=== PATIENT | male | born 1930 | race Caucasian/White ===

== ENCOUNTER 2017-05-23 21:04 | Inpatient (IN) ==
[2017-05-23 21:52] LABS: Basophils # 0.1 K/mcL (0.0-0.2); Basophils % 1.2 %; Hematocrit 36.4 % (37.5-50.1); Hemoglobin 11.6 g/dL (12.9-16.9); Immature Granulocytes % 0.3 % (0-4); Immature Platelets 6.4 % (1.1-6.1); Lymphocytes % 38.5 %; Mean Corpuscular HGB Conc 31.9 g/dL (31.6-35.5); Mean Corpuscular Hemoglobin 30.8 pg (28.0-33.3); Mean Corpuscular Volume 96.6 fL (83.0-100.0); Mean Platelet Volume 11.1 fL (9.4-12.4); Monocytes # 0.6 K/mcL (0.0-1.3); Monocytes % 7.3 %; Neutrophils # 4.1 K/mcL (1.6-8.9); Platelet Count 242 K/mcL (140-400); Red Blood Count 3.77 M/mcL (4.19-5.50); Red Cell Distribution Width 12.8 % (11.5-14.5); Segmented Neutrophils % 52.7 %
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
[2017-05-23 22:12] LABS: Acetaminophen < 1.0 mcg/mL (10-30); Ethanol < 10 mg/dL (0-10)
[2017-05-23 22:24] LABS: Alanine Aminotransferase 51 Units/L (7-52); Albumin 3.8 g/dL (3.5-5.7); Albumin/Globulin Ratio 1.4 (1.1-2.2); Alkaline Phosphatase 88 Units/L (34-104); Aspartate Amino Transferase 51 Units/L (13-39); BUN/Creatinine Ratio 19 (6-26); Bilirubin,Direct 0.1 mg/dL (0.0-0.2); Bilirubin,Indirect 0.5 mg/dL (0.0-1.2); Bilirubin,Total 0.6 mg/dL (0.3-1.0); Blood Urea Nitrogen 29 mg/dL (8-23); Carbon Dioxide 28 mEq/L (23-29); Chloride 104 mEq/L (98-107); Globulin 2.7 g/dL (2.4-3.5); Glucose 97 mg/dL (70-105); Osmolality,Calculated 294 (280-300); Potassium 4.4 mEq/L (3.5-5.1); Sodium 139 mEq/L (136-145); Total Protein 6.5 g/dL (6.4-8.9); eGFR For African Americans 51 (> 60); eGFR For Non-African Americans 42 (> 60)
[2017-05-23 22:29] LABS: Bilirubin,Urine Small (Negative); Blood,Urine Negative (Negative); Clarity,Urine Cloudy (Clear); Color,Urine Dark Yellow (Yellow); Glucose,Urine (UA) Normal (Normal); Ketones,Urine Trace mg/dL (Negative); Leukocyte Esterase,Urine Negative (Negative); Nitrite,Urine Negative (Negative); Protein,Urine 30 mg/dL (Neg-Trace); Specific Gravity,Urine > 1.030 (1.010-1.025)
[2017-05-23 22:31] LABS: Bacteria,Urine None Seen per hpf (None-Few); Hyaline Casts,Urine Few per lpf (None-Few); RBC,Urine 0-3 per hpf (0-3); Squamous Epithelial Cell,Urine Many per lpf (None-Few)
[2017-05-23 22:32] LABS: Amphetamine Screen,Urine Negative ng/mL (Cutoff=1000); Barbiturate Screen,Urine Negative ng/mL (Cutoff=200); Benzodiazepines Screen,Urine Positive ng/mL (Cutoff=200); Cannabinoid Screen,Urine Negative ng/mL (Cutoff = 50); Cocaine Screen,Urine Negative ng/mL (Cutoff= 300); Opiate Screen,Urine Negative ng/mL (Cutoff=300); Phencyclidine Screen,Urine Negative ng/mL (Cutoff=25)
[2017-05-23] MEDS ORDERED: Vancomycin 1,250 MG in D5% in Water 250 ML IVPB ONE (23:11)
[2017-05-23] MEDS ORDERED: Cefepime HCl 1,000 MG in D5% in Water (Mini-Bag+) 100 ML IVPB STA (23:11)
--- NOTE | 2017-05-23 23:13 | Emergency Department Note ---
START Narrative - START START: I, Piter Garcia, examined this patient and my medical decision-making was reviewed with the FIRE ENGINE OPERATOR/PA/Advanced Practice Nurse/Resident Physician. I agree with the documented findings, disposition and treatment plan as described except to the extent set forth below. 87-year-old male to the emergency department by family for concerns of violent behavior. Patient states initially stayed in a assisted-living facility about a year and a half ago. He was transferred from [place] to the local area [facility] where he is staying in a long-term care facility. Patient has become increasingly violent which has been a gradual decline in his behavior. Family states he was evaluated in [facility] 3 days ago and was diagnosed with a possible pneumonia and started on Augmentin. His behavior has not improved and he is evaluation. Patient has acute kidney injury on laboratory evaluation we do not have his baseline. Family states he does not have a history of kidney disease. Patient also has a pneumonia and will be treated as healthcare associated pneumonia secondary to his long-term care housing situation. Patient will be admitted to the hospitalist for further care and evaluation.
[2017-05-24] MEDS ORDERED: Haloperidol Lactate 5 MG/ML VIAL IM ONE ×2 (01:43→02:11)
[2017-05-24] MEDS ORDERED: Haloperidol Lactate 5 MG/ML VIAL ONE (01:43)
[2017-05-24] MEDS ORDERED: traMADol 50 MG TABLET PO PRN (03:13)
[2017-05-24] MEDS ORDERED: Naloxone 0.4 MG/ML INJ IVP PRN (03:13)
[2017-05-24] MEDS ORDERED: Acetaminophen 325 MG TABLET PO PRN (03:13)
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
[2017-05-24] MEDS ORDERED: Levofloxacin 500 MG/100 ML 500 MG/100 ML BAG IVPB SCH (04:00)
[2017-05-24] MEDS: *HR* Heparin 5,000 UNIT/ML VIAL SQ SCH ×2 (07:59→17:53)
[2017-05-24] MEDS ORDERED: Haloperidol Lactate 5 MG/ML VIAL IM PRN (08:00)
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
[2017-05-24] MEDS ORDERED: ALPRAZolam 0.5 MG TABLET PO ONE (15:41)
[2017-05-24] MEDS ORDERED: ALPRAZolam 0.5 MG TABLET PO PRN (17:14)
[2017-05-24] MEDS: Amoxicillin/Clavulanate 500 MG TABLET PO SCH (17:53)
[2017-05-24] MEDS: Budesonide/Formoterol 80/4.5 MDI IH SCH (19:58)
[2017-05-24] MEDS ORDERED: Mirtazapine 15 MG TABLET PO SCH (21:00)
[2017-05-24] MEDS: traZODone 50 MG TABLET PO SCH ×2 (21:32→22:01)
[2017-05-24] MEDS: Mirtazapine 15 MG TABLET PO SCH ×2 (21:32→22:01)
[2017-05-24] MEDS: Divalproex (24 HR) 250 MG TABLET PO SCH ×2 (21:32→22:01)
[2017-05-24] MEDS: Gabapentin 100 MG CAPSULE PO SCH ×2 (21:32→22:01)
[2017-05-24] MEDS: Methocarbamol 500 MG TABLET PO SCH (23:43)
[2017-05-25] MEDS: *HR* Heparin 5,000 UNIT/ML VIAL SQ SCH ×2 (06:22→17:31)
[2017-05-25 06:58] LABS: Basophils # 0.1 K/mcL (0.0-0.2); Basophils % 0.8 %; Eosinophils # 0.6 K/mcL (0.0-0.6); Eosinophils % 10.1 %; Hemoglobin 11.5 g/dL (12.9-16.9); Immature Granulocytes % 0.2 % (0-4); Lymphocytes # 2.2 K/mcL (0.6-4.6); Lymphocytes % 35.1 %; Mean Corpuscular HGB Conc 33.8 g/dL (31.6-35.5); Mean Corpuscular Volume 91.6 fL (83.0-100.0); Mean Platelet Volume 11.5 fL (9.4-12.4); Monocytes # 0.5 K/mcL (0.0-1.3); Monocytes % 7.5 %; Neutrophils # 2.8 K/mcL (1.6-8.9); Platelet Count 200 K/mcL (140-400); Red Blood Count 3.71 M/mcL (4.19-5.50); Red Cell Distribution Width 12.7 % (11.5-14.5); Segmented Neutrophils % 46.3 %
[2017-05-25 07:23] LABS: Alanine Aminotransferase 78 Units/L (7-52); Albumin 3.5 g/dL (3.5-5.7); Albumin/Globulin Ratio 1.5 (1.1-2.2); Alkaline Phosphatase 77 Units/L (34-104); Aspartate Amino Transferase 60 Units/L (13-39); BUN/Creatinine Ratio 18 (6-26); Bilirubin,Total 0.7 mg/dL (0.3-1.0); Blood Urea Nitrogen 17 mg/dL (8-23); Calcium 8.7 mg/dL (8.6-10.3); Carbon Dioxide 25 mEq/L (23-29); Chloride 106 mEq/L (98-107); Globulin 2.4 g/dL (2.4-3.5); Glucose 99 mg/dL (70-105); Osmolality,Calculated 286 (280-300); Potassium 4.1 mEq/L (3.5-5.1); Sodium 137 mEq/L (136-145); Total Protein 5.9 g/dL (6.4-8.9); eGFR For African Americans > 60 (> 60); eGFR For Non-African Americans > 60 (> 60)
[2017-05-25] MEDS ORDERED: Aspirin Enteric Coated 81 MG Tablet PO SCH (09:00)
[2017-05-25] MEDS: Aspirin Enteric Coated 81 MG Tablet PO SCH (09:15)
[2017-05-25] MEDS: traZODone 50 MG TABLET PO SCH ×2 (09:15→20:01)
[2017-05-25] MEDS: Methocarbamol 500 MG TABLET PO SCH ×3 (09:15→23:19)
[2017-05-25] MEDS: Famotidine 20 MG TABLET PO SCH (09:15)
[2017-05-25] MEDS: Gabapentin 100 MG CAPSULE PO SCH ×2 (09:15→20:01)
[2017-05-25] MEDS: Amoxicillin/Clavulanate 500 MG TABLET PO SCH ×2 (09:15→17:31)
[2017-05-25] MEDS: Budesonide/Formoterol 80/4.5 MDI IH SCH ×2 (09:50→19:40)
--- NOTE | 2017-05-25 10:24 | Internal Med Progress Note ---
Date of Encounter: 05/25/17 Time of Encounter: 07:55 - Assessment and plan (1) Violent behavior Current Visit: Yes Status: Acute Assessment and plan: Seen by psychiatry. Restarted on multiple behavior medications. The patient is thought to be . We will continue to monitor with a sitter. Has medication. Restarted at the regular time of which they are dosed at home. We will see if that helps. Appreciate psychiatry help. We will try to take him off restraints later today and see if he does okay. He seems to do better when family is around. (2) Pneumonia Current Visit: Yes Status: Suspected Assessment and plan: Recently diagnosed as an outpatient. Has been on Augmentin. Talked to family yesterday it seems that he has been on antibiotics for about 3-4 days prior to this admission. We will do about 3 more days of Augmentin. He has no signs of pneumonia except for infiltrates on chest x-ray which is expected. He has no white count, cough, fever. Qualifiers: Pneumonia type: due to unspecified organism Laterality: right Lung location: lower lobe of lung Qualified Code(s): J18.1 - Lobar pneumonia, unspecified organism (3) DVT prophylaxis Current Visit: Yes Status: Acute Assessment and plan: Heparin subcutaneous - Subjective Interval history: Patient seen and examined. I took him off the restraints yesterday evening however again this morning his back N restraints as he has been combative again overnight. Has been hemodynamically stable. He is much more calmer this morning. - Constitutional Vitals: Temp Pulse Resp BP Pulse Ox 97.7 F 58 16 169/84 93 05/25/17 07:26 05/25/17 07:26 05/25/17 07:26 05/25/17 07:26 05/25/17 09:22 General appearance: Present: A&O X 0. Absent: cooperative Exam: GEN: NAD, alert and oriented 0 CVS: RRR. S1, S2, No m/r/g RESP: CTAB ABD: Soft, NT, ND, +BS EXT: No edema. 2+ DP. No rashes NEURO: Nonfocal Internal Medicine: Result - Labs CBC & Chem 7: 05/25/17 06:39 05/25/17 06:39 Labs: Short CBC 05/25/17 Range/Units 06:39 WBC 6.1 (4.3-11.1) K/mcL Hgb 11.5 L (12.9-16.9) g/dL Hct 34.0 L (37.5-50.1) % Plt Count 200 (140-400) K/mcL Neutrophils # 2.8 (1.6-8.9) K/mcL BMP 05/25/17 06:39 Sodium 137 Potassium 4.1 Chloride 106 Carbon Dioxide 25 BUN 17 Creatinine 0.92 Glucose 99 Calcium 8.7 Liver Function 05/25/17 Range/Units 06:39 Total Bilirubin 0.7 (0.3-1.0) mg/dL AST 60 H (13-39) Units/L ALT 78 H (7-52) Units/L Alkaline Phosphatase 77 (34-104) Units/L Albumin 3.5 (3.5-5.7) g/dL Consult Discharge Plan - Plan Referrals: [facility] [Primary Care Provider] - Carlotta Sorensen [Family Provider] -
[2017-05-25] MEDS: ALPRAZolam 0.5 MG TABLET PO SCH (16:09)
[2017-05-25] MEDS: Mirtazapine 15 MG TABLET PO SCH (17:31)
[2017-05-25] MEDS: Divalproex (24 HR) 250 MG TABLET PO SCH (20:00)
[2017-05-26] MEDS: *HR* Heparin 5,000 UNIT/ML VIAL SQ SCH ×2 (06:39→18:00)
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
--- NOTE | 2017-05-26 08:32 | Physician Discharge Referral ---
ExtendedCare Referral Info Institutional Level of Care: Skilled - Diagnosis (1) Violent behavior Priority: Primary Status: Acute (2) Pneumonia Priority: Secondary Status: Suspected - Transfer Medications Home Medications: ALPRAZolam [Xanax 0.5 MG Tablet] 0.5 mg PO DAILY PRN 05/24/17 [History] Aspirin Enteric Coated [Aspirin EC] 81 mg PO DAILY 05/24/17 [History] Budesonide/Formoterol 80/4.5 [Symbicort 80/4.5] 2 puff IH BID 05/24/17 [History ] Cimetidine 200 mg PO BID 05/24/17 [History] Divalproex (24 HR) [Depakote ER (24 HR)] 250 mg PO HS 05/24/17 [History] Gabapentin [Neurontin] 100 mg PO BID 05/24/17 [History] Hydrocortisone 1% CREAM [Cortaid] 1 appl TP BID 05/24/17 [History] Methocarbamol [Robaxin] 500 mg PO Q8HR 05/24/17 [History] Mirtazapine [Remeron] 15 mg PO HS 05/24/17 [History] Montelukast [Singulair] 10 mg PO HS 05/24/17 [History] Multivit-Min/FA/Lycopen/Lutein [Men 50 Plus Multivitamin Tab] 1 tab PO DAILY 07/06 [History] Sertraline [Zoloft] 100 mg PO DAILY 05/24/17 [History] Tramadol HCl [Ultram] 50 mg PO BID 05/24/17 [History] traZODone [TraZODone] 50 mg PO BID 05/24/17 [History] Allergies/Adverse Reactions: 3 Allergy/AdvReac Type Severity Reaction Status Date / Time lorazepam [From Ativan] AdvReac Agitated Verified 05/24/17 16:55 - Respiratory Orders Smoking Cessation: Smoking cessation has been advised. For more information, call the [place] Tobacco Quit Line at 5-943-TINR-NOW. - Diet Orders Regular CERTIFICATION: I certify that the transfer of the above named patient to an Extended Care Facility is necessary for the continuing treatment of the diagnosis listed. The above information is true and accurate reflection of patient's current condition. Confidential - Redisclosure prohibited without a patient's written consent.
[2017-05-26] MEDS: Methocarbamol 500 MG TABLET PO SCH ×2 (09:36→17:07)
[2017-05-26] MEDS: traZODone 50 MG TABLET PO SCH ×2 (09:36→20:43)
[2017-05-26] MEDS: Gabapentin 100 MG CAPSULE PO SCH ×2 (09:36→20:42)
[2017-05-26] MEDS: Mirtazapine 15 MG TABLET PO SCH (09:36)
[2017-05-26] MEDS: Famotidine 20 MG TABLET PO SCH (09:36)
[2017-05-26] MEDS: Amoxicillin/Clavulanate 500 MG TABLET PO SCH ×2 (09:36→17:07)
[2017-05-26] MEDS: Aspirin Enteric Coated 81 MG Tablet PO SCH (09:37)
[2017-05-26] MEDS: ALPRAZolam 0.5 MG TABLET PO SCH (09:37)
[2017-05-26] MEDS: Budesonide/Formoterol 80/4.5 MDI IH SCH ×2 (10:43→19:29)
--- NOTE | 2017-05-26 13:53 | Internal Med Progress Note ---
Date of Encounter: 05/27/17 Time of Encounter: 08:00 - Assessment and plan (1) Violent behavior Current Visit: Yes Status: Acute Assessment and plan: Seen by psychiatry. Restarted on multiple behavior medications. Much more calmer. The patient is thought to be . Has medication. Restarted at the regular time of which they are dosed at home. We will see if that helps. Appreciate psychiatry help. Off restraints since yesterday. He seems to do better when family is around. We are working on placement. (2) Pneumonia Current Visit: Yes Status: Suspected Assessment and plan: Recently diagnosed as an outpatient. Has been on Augmentin. Talked to family yesterday it seems that he has been on antibiotics for about 3-4 days prior to this admission. We will do about 2 more days of Augmentin. He has no signs of pneumonia except for infiltrates on chest x-ray which is expected. He has no white count, cough, fever. Qualifiers: Pneumonia type: due to unspecified organism Laterality: right Lung location: lower lobe of lung Qualified Code(s): J18.1 - Lobar pneumonia, unspecified organism - Subjective Interval history: Patient seen and examined. we have not had the need to put him back on restraints. He has been calm.. Has been hemodynamically stable. Were awaiting placement. - Constitutional Vitals: Temp Pulse Resp BP Pulse Ox 97.6 F 69 17 146/73 96 05/26/17 06:40 05/26/17 06:40 05/26/17 06:40 05/26/17 06:40 05/26/17 09:44 General appearance: Present: A&O X 0. Absent: cooperative Exam: GEN: NAD, alert and oriented 0 CVS: RRR. S1, S2, No m/r/g RESP: CTAB ABD: Soft, NT, ND, +BS EXT: No edema. 2+ DP. No rashes NEURO: Nonfocal Internal Medicine: Result - Labs CBC & Chem 7: 05/25/17 06:39 05/25/17 06:39 Consult Discharge Plan - Plan [facility]errals: [facility] [Primary Care Provider] - Carlotta Sorensen [Family Provider] -
[2017-05-26] MEDS: Divalproex (24 HR) 250 MG TABLET PO SCH (20:44)
[2017-05-27] MEDS: Methocarbamol 500 MG TABLET PO SCH ×3 (00:34→17:01)
[2017-05-27] MEDS: *HR* Heparin 5,000 UNIT/ML VIAL SQ SCH ×2 (07:22→17:01)
[2017-05-27] MEDS: Amoxicillin/Clavulanate 500 MG TABLET PO SCH (09:10)
[2017-05-27] MEDS: ALPRAZolam 0.5 MG TABLET PO SCH (09:10)
[2017-05-27] MEDS: traZODone 50 MG TABLET PO SCH ×2 (09:10→22:40)
[2017-05-27] MEDS: Gabapentin 100 MG CAPSULE PO SCH ×2 (09:10→22:40)
[2017-05-27] MEDS: Mirtazapine 15 MG TABLET PO SCH (09:11)
[2017-05-27] MEDS: Aspirin Enteric Coated 81 MG Tablet PO SCH (09:11)
[2017-05-27] MEDS: Famotidine 20 MG TABLET PO SCH (09:11)
[2017-05-27] MEDS: Budesonide/Formoterol 80/4.5 MDI IH SCH ×2 (12:23→20:39)
--- NOTE | 2017-05-27 12:44 | Internal Med Progress Note ---
Date of Encounter: 05/27/17 Time of Encounter: 12:42 - Assessment and plan (1) Violent behavior Current Visit: Yes Status: Acute Assessment and plan: Seen by psychiatry. Restarted on multiple behavior medications. The patient is thought to be sundowning. Restarted psych meds at the regular time of which they are dosed at home. Seems to be keeping him under control. Appreciate psychiatry help. Been off restraints for two days. He seems to do better when family is around. We are working on placement. (2) Pneumonia Current Visit: Yes Status: Suspected Assessment and plan: Recently diagnosed as an outpatient. Has been on Augmentin. Talked to family yesterday it seems that he has been on antibiotics for about 3-4 days prior to this admission. Stop Augmentin. He has no signs of pneumonia except for infiltrates on chest x-ray which is expected. He has no white count, cough, fever. Qualifiers: Pneumonia type: due to unspecified organism Laterality: right Lung location: lower lobe of lung Qualified Code(s): J18.1 - Lobar pneumonia, unspecified organism - Subjective Interval history: Patient seen and examined. Remains calm. He is at bedside in a chair eating breakfast. Has been hemodynamically stable. Were awaiting placement. - Constitutional Vitals: Temp Pulse Resp BP Pulse Ox 98.2 F 66 17 120/72 93 05/27/17 12:30 05/27/17 12:30 05/27/17 12:30 05/27/17 12:30 05/27/17 12:30 General appearance: Present: A&O X 0. Absent: cooperative Exam: GEN: NAD, alert and oriented 0. Very Krishnan said that a chair. CVS: RRR. S1, S2, No m/r/g RESP: CTAB ABD: Soft, NT, ND, +BS EXT: No edema. 2+ DP. No rashes NEURO: Nonfocal Internal Medicine: Result - Labs CBC & Chem 7: 05/25/17 06:39 05/25/17 06:39 Consult Discharge Plan - Plan [facility] Provider[facility] - Carlotta Sorensen [Family Provider] -
--- NOTE | 2017-05-27 18:37 | Electrocardiograph Report ---
[address] [address] Test Date: 2017-05-23 Pat Name: Martinez Izquierdo Department: [id number] Room: 2A12 Gender: M Senior Chemical Process Engineer: EKP : [id number] Requested By: Alfred Dominguez Order Number: [id number] Reading MD: Chato Hylton MD Measurements Intervals [place] Rate: 59 P: 96 LA: 191 QRS: -7 QRSD: 98 T: 8 QT: 382 QTc: 382 Interpretive Statements SINUS BRADYCARDIA Electronically Signed On 05-27-2017 18:35:21 EST by Chato Hylton MD
[2017-05-27] MEDS: Divalproex (24 HR) 250 MG TABLET PO SCH (22:40)
[2017-05-28] MEDS: Methocarbamol 500 MG TABLET PO SCH ×3 (00:31→18:28)
[2017-05-28] MEDS: *HR* Heparin 5,000 UNIT/ML VIAL SQ SCH ×2 (05:46→18:34)
[2017-05-28] MEDS: Mirtazapine 15 MG TABLET PO SCH (10:02)
[2017-05-28] MEDS: traZODone 50 MG TABLET PO SCH ×2 (10:02→20:03)
[2017-05-28] MEDS: Aspirin Enteric Coated 81 MG Tablet PO SCH (10:03)
[2017-05-28] MEDS: Famotidine 20 MG TABLET PO SCH (10:03)
[2017-05-28] MEDS: ALPRAZolam 0.5 MG TABLET PO SCH (10:03)
[2017-05-28] MEDS: Gabapentin 100 MG CAPSULE PO SCH ×2 (10:03→20:03)
[2017-05-28] MEDS: Budesonide/Formoterol 80/4.5 MDI IH SCH ×2 (10:41→19:37)
--- NOTE | 2017-05-28 12:03 | Internal Med Progress Note ---
Date of Encounter: 05/28/17 Time of Encounter: 11:23 - Assessment and plan (1) DVT prophylaxis Current Visit: Yes Status: Acute Assessment and plan: Heparin subcutaneous (2) Dementia associated with alcoholism with behavioral disturbance Current Visit: Yes Status: Acute Assessment and plan: psych recommended continuation of home medications and placement in geriatric psych facility discharge pending placement (3) Hallucinations Current Visit: Yes Status: Resolved (4) Violent behavior Current Visit: Yes Status: Acute Assessment and plan: continue psych medications currently remains calm and is off restraints social sciences chair on board and discharge pending placement (5) Pneumonia Current Visit: Yes Status: Suspected Assessment and plan: Finished abx course for PNA clinically asymptomatic Qualifiers: Pneumonia type: due to unspecified organism Laterality: right Lung location: lower lobe of lung Qualified Code(s): J18.1 - Lobar pneumonia, unspecified organism - Subjective Interval history: Patient seen and examined at bedside. Resting in bed and denies any discomfort. Pt has been admitted for PNA and psych was consulted for hallucinations/violent behavior. Psych recommended geriatric psych facility. D/C pending placement pt has finished abx course for PNA. Remains hemodynamically stable - Constitutional Vitals: Temp Pulse Resp BP Pulse Ox 99.3 F 77 16 106/66 98 05/28/17 10:15 05/28/17 10:15 05/28/17 10:15 05/28/17 10:15 05/28/17 10:15 General appearance: Present: A&O X 0, cooperative - Head Head exam: Present: atraumatic, normocephalic - Eye Eye exam: Present: conjuntiva pink, sclera anicteric Internal Medicine: Result - Labs CBC & Chem 7: 05/25/17 06:39 05/25/17 06:39 Consult Discharge Plan - Plan [facility]errals: [facility] [Primary Care Provider] - ([facility])
[2017-05-28] MEDS: Divalproex (24 HR) 250 MG TABLET PO SCH (20:03)
[2017-05-29] MEDS: Methocarbamol 500 MG TABLET PO SCH ×2 (01:41→07:55)
[2017-05-29] MEDS: *HR* Heparin 5,000 UNIT/ML VIAL SQ SCH (05:12)
[2017-05-29 07:34] VITALS: BP 105/61
[2017-05-29] MEDS: Gabapentin 100 MG CAPSULE PO SCH (07:54)
[2017-05-29] MEDS: traZODone 50 MG TABLET PO SCH (07:54)
[2017-05-29] MEDS: ALPRAZolam 0.5 MG TABLET PO SCH (07:55)
[2017-05-29] MEDS: Mirtazapine 15 MG TABLET PO SCH (07:55)
[2017-05-29] MEDS: Famotidine 20 MG TABLET PO SCH (07:55)
[2017-05-29] MEDS: Aspirin Enteric Coated 81 MG Tablet PO SCH (07:55)
[2017-05-29] MEDS: Budesonide/Formoterol 80/4.5 MDI IH SCH (08:00)
--- NOTE | 2017-05-29 10:29 | Internal Med Progress Note ---
Date of Encounter: 05/29/17 Time of Encounter: 08:05 - Assessment and plan (1) DVT prophylaxis Status: Acute (2) Dementia associated with alcoholism with behavioral disturbance Status: Acute (3) Hallucinations Status: Resolved (4) Violent behavior Status: Acute (5) Pneumonia Status: Suspected Qualifiers: Pneumonia type: due to unspecified organism Laterality: right Lung location: lower lobe of lung Qualified Code(s): J18.1 - Lobar pneumonia, unspecified organism - Subjective Interval history: Patient seen and examined at bedside. Resting in bed and denies any discomfort. Pt has been admitted for PNA and psych was consulted for hallucinations/violent behavior. Psych recommended geriatric psych facility. pt has finished abx course for PNA. Remains hemodynamically stable Patient will be discharged to [facility] psych today - Constitutional Vitals: Temp Pulse Resp BP Pulse Ox 98.2 F 60 12 105/61 96 05/29/17 07:33 05/29/17 07:33 05/29/17 07:33 05/29/17 07:33 05/29/17 07:33 General appearance: Present: A&O X 0 - Head Head exam: Present: atraumatic, normocephalic - Respiratory Respiratory exam: Absent: respiratory distress, wheezes - Cardiovascular Cardiovascular exam: Present: RRR, +S1, +S2 - GI/Abdominal GI/Abdominal exam: Present: normal bowel sounds, soft. Absent: tenderness Internal Medicine: Result - Labs CBC & Chem 7: 05/25/17 06:39 05/25/17 06:39 Consult Discharge Plan - Plan [facility]errals: [facility] [Primary Care Provider] - (Patient will more than Likely go to [facility])
== END 2017-05-29 08:40 | DRG 194 ==
LOC: EMEROO 21:04 → 2ANU 21:04
PROVIDERS: ADMIT Internal Medicine; ATTEND Internal Medicine